=== PATIENT | male | born 1960 | race Caucasian/White ===

== ENCOUNTER → 2020-11-07 12:31 | Outpatient (CLI) | payer SELFPAY ==
--- NOTE | ~2020-11-07 | CT_ITS ---
EXAMINATION:CT diagnostic chest wo con DATE: 11/07/2020 12:58 INDICATION: Pulmonary nodules. TECHNIQUE: Computed tomography (CT) of the chest was performed without intravenous contrast. Automate d exposure control and iterative reconstruction technique were employed. The dose-length product (DLP ) was 96.95 mGy-cm. COMPARISON: Chest CT 07/03/2016 FINDINGS: There are multiple scattered nodules in the lungs measuring up to 8 mm in right lower lobe. A calcified left lung nodule is consistent with old granulomatous disease. No pleural effusion. The heart size is normal. No pericardial effusion. There is ectasia of ascending aorta measuring 4.4 cm. There is mild thoracic spondylosis. There is dextrocurvature of thoracic spine. IMPRESSION: 1. Pulmonary nodules stable from 07/03/2016, likely benign. Reviewed, dictated and finalized at location [facility].
== END ==
DX: R91.8 Other nonspecific abnormal finding of lung field (principal)
CPT/HCPCS: 71250

== ENCOUNTER → 2021-11-15 08:07 | Outpatient (CLI) | payer SELFPAY ==
--- NOTE | ~2021-11-15 | CT_ITS ---
EXAMINATION: CT diagnostic chest wo con DATE: 11/15/2021 08:23 INDICATION: Ascending aortic enlargement TECHNIQUE: Computed tomography (CT) of the chest was performed without intravenous contrast. Automate d exposure control and iterative reconstruction technique were employed. Exam dose: 302.52 mGy-cm to rosalba exam DLP. COMPARISON: 11/24/2020 CT chest FINDINGS: Again noted are scattered bilateral pulmonary nodules which is stable since 11/24/2020 and 1 09/03/2015, likely benign. No pulmonary infiltrate or consolidation or interval pulmonary mass lesion is noted. Normal heart size. No pericardial or pleural effusion. Ascending aorta measures up to approximately 4.6 cm diameter, compared to 4.45 cm on 12/04/2020. Normal morphology of the adrenal glands. Small sliding hiatal hernia . IMPRESSION: Ascending aorta measures up to 4.6 cm diameter, compared to 4.45 cm on 11/07/2020 Scattered stable bilateral pulmonary nodules, likely benign Reviewed, dictated and finalized at [facility]. Reviewed, dictated and finalized at location [facility]. IMPRESSION: Ascending aorta measures up to 4.6 cm diameter, compared to 4.45 c m on 11/07/2020 Scattered stable bilateral pulmonary nodules, likely benign
== END ==
PROVIDERS: PCP Family Medicine; Visit Provider Internal Medicine Cardiovascular Disease
DX: I77.89 Other specified disorders of arteries and arterioles (principal)
CPT/HCPCS: 71250

== ENCOUNTER → 2022-11-07 09:03 | Outpatient (CLI) | payer SELFPAY ==
--- NOTE | ~2022-11-07 | CT_ITS ---
CT Scan of the Chest without Contrast: Clinical Indication: Ascending aortic aneurysm Technique: Contiguous sections were acquired throughout the chest without intravenous contrast. Dose reduction technique was used on this scan by utilizing automated exposure control and iterative recon struction technique. The dose-length product (DLP) was 259.65 mGy-cm. COMPARISON: 11/15/2021 Findings: There is no evidence of any significant mediastinal, hilar or axillary lymphadenopathy. Ascending aor ta is dilated to 4.6 in diameter. There is no evidence of pleural or pericardial effusion. There are multiple scattered subcentimeter noncalcified pulmonary nodules, largest measuring 7 mm the right lower lobe. These are all stable from prior exam. Images through the upper abdomen reveal no abnormalities. Impression: Ascending aortic aneurysm measures 4.6 cm in diameter. Multiple stable pulmonary nodules, as detailed above. Reviewed, dictated and finalized at [facility]. Impression: Ascending aortic aneurysm measures 4.6 cm in diameter. Multiple stable pulmonary nodules, as detailed above.
== END ==
PROVIDERS: PCP Family Medicine; Visit Provider Internal Medicine Cardiovascular Disease
DX: I77.89 Other specified disorders of arteries and arterioles (principal); I71.40 Abdominal aortic aneurysm, without rupture, unspecified
CPT/HCPCS: 71250

== ENCOUNTER 2023-11-21 06:59 | Outpatient (CLI) | payer SELFPAY ==
--- NOTE | ~2023-11-21 | CT_ITS ---
CT Scan of the Chest without Contrast: Clinical Indication: Aortic aneurysm Technique: Contiguous sections were acquired throughout the chest without intravenous contrast. Dose reduction technique was used on this scan by utilizing automated exposure control and iterative recon struction technique. The dose-length product (DLP) was 308.67 mGy-cm. COMPARISON: 11/07/2022 Findings: There is no evidence of any significant mediastinal, hilar or axillary lymphadenopathy. Ascending aor ta measures 4.8 cm in diameter. There are mild coronary artery calcifications. There is no evidence of pleural or pericardial effusion. Stable 5 mm posterior right upper lobe pulmonary nodule. Stable 3 mm nodule in the superior segment r ight lower lobe. Stable Fissural nodules along the right minor fissure. Stable subcentimeter right middle lobe peripheral nod ules. Stable 6 mm right lower lobe peripheral nodule. Stable subcentimeter pleural-based nodules in t he left lower lobe. Images through the upper abdomen reveal no abnormalities. Impression: Ascending aortic aneurysm measures 4.8 cm in diameter. Multiple subcentimeter pulmonary nodules, as detailed above, unchanged. Reviewed, dictated and finalized at location [facility]. Impression: Ascending aortic aneurysm measures 4.8 cm in diameter. Multiple subcentimeter pulmonary nodules, as detailed above, unchanged.
== END 2023-11-21 07:00 ==
LOC: MICIMG 07:00
PROVIDERS: PCP Internal Medicine Cardiovascular Disease; Visit Provider Internal Medicine Cardiovascular Disease
DX: I77.89 Other specified disorders of arteries and arterioles (principal)
CPT/HCPCS: 71250

== ENCOUNTER 2024-06-01 15:14 | Outpatient (CLI) | payer SELFPAY ==
--- NOTE | ~2024-06-01 | CT_ITS ---
EXAMINATION:CT diagnostic chest w con DATE: 06/01/2024 15:57 INDICATION: Ascending aorta enlargement. TECHNIQUE: Computed tomography (CT) of the chest was performed with 75 mL Omnipaque 350 intravenous c ontrast. Automated exposure control and iterative reconstruction technique were employed. The dose-le ngth product (DLP) was 244.43 mGy-cm. COMPARISON: Chest CT 11/21/23, 11/15/21 FINDINGS: There is mild emphysema. There are a few nodules in the lungs measuring up to 8 mm in right lower lobe, stable from 11/15/2021, likely benign. A calcified left lung nodule is consistent with ol d granulomatous disease. No pleural effusion. There is a right posterior diaphragmatic hernia contain ing fat. The heart size is normal. No pericardial effusion. The aorta measures 3.5 cm at the sinuses of Valsalva, 4.1 cm at the sinotubular junction, 4.5 cm in the mid ascending aorta, 3.1 cm in the aor tic isthmus, and 2.9 cm in the mid descending aorta. There is mild thoracic spondylosis. IMPRESSION: 1. Stable ectasia of ascending aorta measuring 4.5 cm. 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
[2024-06-01 15:49] LABS: Estimated Glomerular Filt Rate > 60
== END 2024-06-01 15:15 | disposition home or self-care (01) ==
PROVIDERS: PCP Internal Medicine Cardiovascular Disease; Visit Provider Internal Medicine Cardiovascular Disease
DX: I77.819 Aortic ectasia, unspecified site (principal)
CPT/HCPCS: 71260; Q9967